=== PATIENT | female | born 1980 | race Hispanic/Latino ===

== ENCOUNTER 2017-05-14 05:34 | Emergency (ER) | payer SELFPAY ==
[~2017-05-14] VITALS: Ht 160 cm; Wt 82.8 kg
[2017-05-14 06:23] LABS: HEMATOCRIT 40.6 % (37.0-47.0); HEMOGLOBIN 14.1 g/dl (12.0-16.0); IMMATURE GRANULOCYTES 0.2 % (0.0-1.0); MEAN CELL VOLUME 88.5 fL CALC (80.0-100.0); MEAN CORPUSCULAR HGB 30.7 pG CALC (26.0-32.0); MEAN CORPUSCULAR HGB CONC 34.7 g/L CALC (32.0-36.0); NEUT# 8.19 thou/uL (2.00-7.15); RED BLOOD COUNT 4.59 mill/uL (4.20-5.60); RED CELL DISTRI WIDTH 13.4 % (11.5-15.5)
[2017-05-14 06:24] LABS: URINE BILIRUBIN - DIPSTICK NEGATIVE (NEGATIVE); URINE BLOOD DIPSTICK TRACE-LYSED (NEGATIVE); URINE CLARITY TURBID; URINE COLOR YELLOW; URINE GLUCOSE - DIPSTICK NEGATIVE (NEGATIVE); URINE KETONE NEGATIVE (NEGATIVE); URINE LEUK ESTERASE TRACE (NEGATIVE); URINE NITRITE - DIPSTICK NEGATIVE (Negative); URINE PH 6.5 (4.5-8.0); URINE PROTEIN - DIPSTICK 30 mg/dL (NEG-TRACE); URINE SPECIFIC GRAVITY 1.025
[2017-05-14 06:36] LABS: ALBUMIN 4.7 g/dL (3.2-5.0); ALKALINE PHOSPHATASE 63 u/l (38-126); AMYLASE 74 u/l (30-110); ANION GAP 18 (6-22 (CALC)); BUN 11 mg/dL (7-17); BUN/CREATININE RATIO 20 (12-20 (CALC)); CALCIUM 9.7 mg/dL (8.4-10.2); CARBON DIOXIDE 23 mmol/l (22-30); CHLORIDE 107 mmol/l (95-108); CREATININE 0.6 mg/dL (0.5-1.0); GFR > 60 ML/MIN (>=60 (CALC)); GFR FOR AFR.AMER. > 60 ML/MIN (>=60 (CALC)); GLUCOSE 168 mg/dL (65-105); LIPASE 77 u/l (23-300); POTASSIUM 3.7 mmol/l (3.5-5.1); SGOT/AST 25 u/l (14-36); SGPT/ALT 51 u/l (9-52); SODIUM 144 mmol/l (137-146); TOTAL PROTEIN 8.3 g/dL (6.3-8.2)
[2017-05-14 06:42] LABS: URINE BACTERIA FEW hpf; URINE MUCUS MANY hpf (NONE-FEW); URINE SQUAMOUS EPITHELIAL CELL MODERATE EPI/hpf (0-FEW)
[2017-05-14 06:45] LABS: MYOGLOBIN 21 ng/mL (0 - 62)
[2017-05-14] MEDS ORDERED: CIPROFLOXACN500 MG PO (09:51)
[2017-05-14] MEDS ORDERED: NORCO1 TA1 PO (09:51)
[2017-05-14 10:00] VITALS: BP 129/77
== END 2017-05-14 10:10 | disposition home or self-care (01) | DRG 446 ==
LOC: ED 05:34
PROVIDERS: Emergency Medicine
DX: K80.50 Calculus of bile duct without cholangitis or cholecystitis without obstruction (principal); K76.0 Fatty (change of) liver, not elsewhere classified; R11.2 Nausea with vomiting, unspecified; R10.11 Right upper quadrant pain
CPT/HCPCS: Q9967

== ENCOUNTER 2017-05-15 12:12 | Observation (INO) | payer SELFPAY ==
[2017-05-15] VITALS (8 sets, daily range): BP systolic 104–120; BP diastolic 60–79
[~2017-05-15] VITALS: Ht 160 cm; Wt 86.9 kg
[~2017-05-15 12:12] MED LIST: CIPROFLOXACN500 MG PO; NORCO1 TA1 PO
--- NOTE | 2017-05-15 12:18 | NUR ---
AMBULATORY TO ER ROOM 13, TO BED
--- NOTE | 2017-05-15 12:44 | NUR ---
PT C/O GENERALIZED ABD PAIN, WORSENING RUQ ABD. RELEIF WITH PAIN MEDS BUT COMES BACK. DENIES VOMITING & DIARRHEA. PTS SKIN DRY & WARM. MOUTH MOIST.
[2017-05-15 13:05] LABS: HEMATOCRIT 38.4 % (37.0-47.0); HEMOGLOBIN 13.4 g/dl (12.0-16.0); IMMATURE GRANULOCYTES 0.5 % (0.0-1.0); MEAN CELL VOLUME 88.5 fL CALC (80.0-100.0); MEAN CORPUSCULAR HGB 30.9 pG CALC (26.0-32.0); MEAN CORPUSCULAR HGB CONC 34.9 g/L CALC (32.0-36.0); NEUT# 11.31 thou/uL (2.00-7.15); RED BLOOD COUNT 4.34 mill/uL (4.20-5.60); RED CELL DISTRI WIDTH 13.4 % (11.5-15.5)
[2017-05-15 13:24] LABS: ALBUMIN 4.4 g/dL (3.2-5.0); ALKALINE PHOSPHATASE 66 u/l (38-126); AMYLASE 44 u/l (30-110); ANION GAP 17 (6-22 (CALC)); BILIRUBIN, TOTAL 1.3 mg/dL (0.0-1.4); BUN 6 mg/dL (7-17); BUN/CREATININE RATIO 13 (12-20 (CALC)); CALCIUM 9.4 mg/dL (8.4-10.2); CARBON DIOXIDE 23 mmol/l (22-30); CHLORIDE 103 mmol/l (95-108); CREATININE 0.5 mg/dL (0.5-1.0); GFR > 60 ML/MIN (>=60 (CALC)); GFR FOR AFR.AMER. > 60 ML/MIN (>=60 (CALC)); GLUCOSE 121 mg/dL (65-105); LIPASE 67 u/l (23-300); POTASSIUM 3.4 mmol/l (3.5-5.1); SGOT/AST 25 u/l (14-36); SGPT/ALT 48 u/l (9-52); SODIUM 139 mmol/l (137-146); TOTAL PROTEIN 7.6 g/dL (6.3-8.2)
--- NOTE | 2017-05-15 13:34 | NUR ---
PT PAIN IS 4/10. DENIES N/V/D. PREPPING PT FOR ADMISSION.
[2017-05-15 13:35] LABS: MYOGLOBIN 20 ng/mL (0 - 62)
--- NOTE | 2017-05-15 13:52 | NUR ---
SBAR PRINTED TO FLOOR
--- NOTE | 2017-05-15 14:12 | NUR ---
BRIGITTE FROM OR, @ BEDSIDE. PT REMOVING JEWELRY. CLOTHES PLACED IN A BELONGINGS BAG.
--- NOTE | 2017-05-15 14:20 | NUR ---
Pt to OR via stretcher accompanied by staff.
--- NOTE | 2017-05-15 17:25 | NUR ---
PT ARRIVED TO FLOOR AT THIS TIME VIA STRETCHER ACCOMPANIED BY ELVIRA RN; PT TRANSFERED SELF TO BED; PT TOLERATED WELL; INCISIONS X4 WITH DRESSING CDI; PT DENIES ANY PAIN OR DISCOMFORT AT THIS TIME; IVF INFUSING TO #20 TO RAC; IV SITE APPEARS HEALTHY; SCD'S IN PLACE AND IS AT BEDSIDE; VSS; PT ORIENTED TO ROOM AND CALL LIGHT SYSTEM; CALL LIGHT WITHIN REACH; WILL CONTINUE TO MONITOR
--- NOTE | 2017-05-15 20:00 | NUR ---
PATIENT A+O*3 IN BED, LUNG CLEAR, NO PRESENT ABD PAIN AT THE MOMENT, BS PRESENT AND SOFT, NO PRESENT EDEMA IN THE ARM AND LEG, NO LYNN, THE IV IS RAC #20 FREE REDNESS AREA AND NO EDEMA AND IV FLUID R/L TO RUN 75ML/HR.
--- NOTE | 2017-05-16 | NUR ---
PATIANT IN BED AND NO PRESENT ABD PAIN. GIVE MEDICATION IV ZOSYN. THE IV NO PRESENT EDEMA AND FREE REDNESS AREA.
[2017-05-16 04:10] VITALS: BP 120/67
--- NOTE | 2017-05-16 04:43 | NUR ---
PATIENT PRESENT ABD PAIN 0230 AND GIVE MEDICATION, 0330 PACIENT NO PRESENT ABD PAIN AND SLEEP.
[2017-05-16 06:27] LABS: HEMOGLOBIN 11.1 g/dl (12.0-16.0); MEAN CELL VOLUME 90.7 fL CALC (80.0-100.0); MEAN CORPUSCULAR HGB 30.5 pG CALC (26.0-32.0); MEAN CORPUSCULAR HGB CONC 33.6 g/L CALC (32.0-36.0); RED BLOOD COUNT 3.64 mill/uL (4.20-5.60); RED CELL DISTRI WIDTH 13.8 % (11.5-15.5)
[2017-05-16 06:45] LABS: ANION GAP 12 (6-22 (CALC)); BUN 5 mg/dL (7-17); BUN/CREATININE RATIO 10 (12-20 (CALC)); CALCIUM 8.4 mg/dL (8.4-10.2); CARBON DIOXIDE 26 mmol/l (22-30); CHLORIDE 106 mmol/l (95-108); CREATININE 0.6 mg/dL (0.5-1.0); GFR > 60 ML/MIN (>=60 (CALC)); GFR FOR AFR.AMER. > 60 ML/MIN (>=60 (CALC)); GLUCOSE 134 mg/dL (65-105); POTASSIUM 3.1 mmol/l (3.5-5.1); SODIUM 141 mmol/l (137-146)
--- NOTE | 2017-05-16 07:30 | NUR ---
BEDSIDE REPORT RECIEVED BY DAY SHIFT. PT RESTING IN BED, AWAKE UPON ENTRY. PT IS MOSTLY [place]EN[place] SPEAKING. FAMILY AT BEDSIDE ASSISTING WITH INTERPRETATION. PT COMPLAINS OF MODERATE ABDOMINAL PAIN. FACIAL GRIMACING NOTED. RESP EVEN AND UNLABORED ON RA.PT EDUCATED ON USE OF INCENTIVE SPIROMETER. FOUR ABD DRESSINGS CDI. PLAN OF CARE DISCUSSED WITH PT, ENCOURAGED TO VERBALIZE CONCERNS. PT STATES UNDERSTANDING. CALL LIGHT SYSTEM WITHIN REACH.
[2017-05-16 08:19] VITALS: BP 115/80
--- NOTE | 2017-05-16 11:56 | NUR ---
PT UP TO CHAIR, ENCOURAGED TO AMBULATE. POSSIBLE DISCHARGE THIS AFTERNOON. PLACED ON SOFT DIET. PRUNE JUICE GIVEN TO ENCOURAGE BOWEL MOVEMENT. CALL LIGHT IN REACH.
--- NOTE | 2017-05-16 13:30 | NUR ---
Discharge instructions given. Patient verbalizes understanding of same. Discharged in stable condition via Wheelchair to Home with family. All belongings sent with pt.
== END 2017-05-16 13:31 | disposition home or self-care (01) | DRG 419 ==
LOC: ED 12:12 → ED-I 13:37 → ED 13:54 → MS2 13:55
PROVIDERS: Emergency Medicine; ADMIT Internal Medicine; ATTEND Internal Medicine
PROC: 0FT44ZZ Resection of Gallbladder, Percutaneous Endoscopic Approach (ICD-10-PCS; principal; 2017-05-15)
PROC: BF001ZZ Plain Radiography of Bile Ducts using Low Osmolar Contrast (ICD-10-PCS; 2017-05-15)
DX: K80.12 Calculus of gallbladder with acute and chronic cholecystitis without obstruction (principal)
CPT/HCPCS: J2710; Q9967